=== PATIENT | female | born 1980 | race Caucasian/White ===

== ENCOUNTER 2017-09-03 23:05 | Emergency (ER) | payer SELFPAY, MEDICAID ==
[2017-09-04 01:41] LABS: URINE BLOOD (Dip) POC Negative (NEGATIVE); URINE GLUCOSE (Dip) POC Negative (NEGATIVE); URINE KETONES (Dip) POC Negative (NEGATIVE); URINE LEUKOCYTE EST (Dip) POC Negative (NEGATIVE); URINE NITRITE (Dip) POC Negative (NEGATIVE); URINE TOTAL PROTEIN POC Negative (NEGATIVE)
[2017-09-04] MEDS: HYDROCODONE/APAP (5/325) TAB PO (02:14)
[2017-09-04] MEDS: KETOROLAC 30 MG INJ IM (02:17)
[2017-09-04] MEDS: OXYCODONE/ACETAMINOPHEN (5/325) TAB PO (03:29)
[2017-09-04] MEDS: DIAZEPAM 5 MG TAB PO (03:29)
== END 2017-09-04 04:31 | disposition home or self-care (01) ==
LOC: FTE 23:05
DX: S80.11XA Contusion of right lower leg, initial encounter (principal); J45.909 Unspecified asthma, uncomplicated; W01.198A Fall on same level from slipping, tripping and stumbling with subsequent striking against other object, initial encounter; Y92.510 Bank as the place of occurrence of the external cause
CPT/HCPCS: 29515; 72100; 73590; 73610-RT; 81003; 81025; 96372; 99284-25

== ENCOUNTER 2017-09-17 19:30 | Emergency (ER) | payer SELFPAY ==
[2017-09-17] MEDS: KETOROLAC 60 MG INJ IM (21:11)
== END 2017-09-17 22:10 | disposition home or self-care (01) ==
LOC: FTE 19:30
DX: S86.912A Strain of unspecified muscle(s) and tendon(s) at lower leg level, left leg, initial encounter (principal); J45.909 Unspecified asthma, uncomplicated; W01.0XXA Fall on same level from slipping, tripping and stumbling without subsequent striking against object, initial encounter; Y92.9 Unspecified place or not applicable
CPT/HCPCS: 73590; 81025; 93971; 96372; 99285-25